=== PATIENT | female | born 1985 | race Caucasian/White ===

== ENCOUNTER 2021-03-07 21:43 | Emergency (ER) | payer OTHER, SELFPAY ==
[2021-03-07 21:45] VITALS: BP 127/97; PULSE 128; RESP 20; TEMP 36.4; O2SAT 98
--- NOTE | 2021-03-07 22:20 | ED.BACK ---
HPI - Back Pain/Injury General Chief Complaint: Back Pain/Injury Stated Complaint: Lower back pain Time Seen by Provider: 03/07/21 21:56 Source: patient Mode of arrival: ambulatory Limitations: no limitations History of Present Illness HPI Narrative: Patient is a 35-year-old female complaining of low back pain, 10 out of 10, dull, aching, nonradiating started approximately 3 to 4 hours prior to arrival. Patient states that she has a history of chronic low back pain and has had back surgery on her L4 and L5 due to herniated disc. Patient states that she is from [place] drove 4 hours here to visit her mother and sister, started to have low back pain 2 hours into her trip and when she reached out for her pain medication in her bag it was not there, forgot her pain medications at home, takes oxycodone 10 mg and tizanidine for muscle relaxer. Patient also states that she takes Keppra for her seizure and forgot that medication too. Patient denies any numbness, weakness, incontinence, fever or urinary symptoms. Related Data Home Medications Medication Instructions Recorded Confirmed ondansetron 03/07/21 tizanidine mg 03/07/21 Allergies Allergy/AdvReac Type Severity Reaction Status Date / Time ciprofloxacin Allergy Unknown Rash Unverified 03/07/21 22:24 daptomycin Allergy Unknown Anaphylaxis Unverified 03/07/21 22:24 tigecycline Allergy Unknown Rash Unverified 03/07/21 22:24 vancomycin Allergy Unknown Rash Unverified 03/07/21 22:24 codeine Allergy Rash Verified 03/07/21 23:05 haloperidol [From Haldol] Allergy Rash Verified 03/07/21 23:05 tramadol [From Ultram] Allergy Rash Verified 03/07/21 22:24 NSAIDS (Non-Steroidal AdvReac Gastrointestinal Verified 03/07/21 23:05 Anti-Inflamma Upset Review of Systems Review of Systems: All systems reviewed & are unremarkable except as noted in HPI and below Constitutional: Constitutional: Denies body ache(s), Denies chills, Denies excessive sweating, Denies fatigue, Denies fever(s), Denies headache(s), Denies lethargy, Denies malaise, Denies weakness and Denies weight loss Eyes: Eyes: Denies blurry vision, Denies change in vision and Denies loss of vision ENT: Denies dizziness, Denies ear discharge, Denies headache(s), Denies lip swelling, Denies epistaxis, Denies nasal congestion, Denies neck pain, Denies throat swelling and Denies tongue swelling Cardiovascular: Cardiovascular: Denies chest pain, Denies chest pain at rest, Denies chest pain with activity, Denies diaphoresis, Denies rapid heart rate, Denies edema, Denies irregular heart rhythm, Denies lightheadedness, Denies palpitations, Denies dyspnea and Denies dyspnea on exertion Respiratory: Respiratory: Denies chest congestion, Denies cough, Denies hemoptysis, Denies dyspnea and Denies dyspnea on exertion Gastrointestinal: Gastrointestinal: Denies abdominal pain, Denies melena, Denies hematochezia, Denies diarrhea, Denies nausea, Denies vomiting and Denies hematemesis Musculoskeletal: Musculoskeletal: Denies abnormal gait, Denies deformity, Denies joint swelling, Denies limited range of motion, Denies neck pain and Denies numbness Neurologic: Denies Abnormal speech present, Denies abnormal gait, Denies confusion, Denies dizziness, Denies headache(s), Denies focal weakness, Denies loss of vision, Denies numbness, Denies Other visual disturbances, Denies Sensory deficit (Neuro) and Denies weakness Psychiatric: Psychiatric: Denies confusion, Denies depression, Denies auditory hallucinations, Denies homicidal ideation and Denies suicidal ideation Endocrine: Endocrine: Denies cold intolerance, Denies excessive sweating, Denies fatigue, Denies heat intolerance and Denies palpitations Hematologic/Lymphatic: Hematologic/Lymphatic: Denies easy bleeding and Denies easy bruising Allergic/Immunologic: Allergic/Immunologic: Denies lip swelling, Denies throat swelling and Denies tongue swelling PMFSH Comments Past medical history: Chronic low
[2021-03-07] MEDS: KETOROLAC 30 MG/ML VIAL (*BKC) IM (22:40)
[2021-03-07] MEDS: HYDROcodone/acetaminophen (*CRX) 7.5-325 MG TABLET 1 TAB PO (22:40)
[2021-03-07] MEDS: diazePAM (*CRX) 5 MG TABLET PO (22:41)
[2021-03-07 23:16] VITALS: BP 104/80; PULSE 66; RESP 16; O2SAT 97
== END 2021-03-07 23:17 | disposition home or self-care (01) ==
PROVIDERS: Emergency Provider Emergency Medicine
DX: M54.5 Low back pain (principal); G89.29 Other chronic pain; G35 Multiple sclerosis
CPT/HCPCS: 96372; 99283; A9270; J1885